=== PATIENT | female | born 1990 | race Caucasian/White ===

== ENCOUNTER 2017-05-05 09:52 | Observation (INO) | payer OTHER ==
[~2017-05-05] VITALS: Ht 160 cm; Wt 92.3 kg
[~2017-05-05 09:52] MED LIST: Amoxicillin500 MG PO; BIRTH CONTROL PO; Cheratussin AC118 ML PO; Flonase 0.05% N16 GM; HYDCOR2.5A PR; LISI20 PO; MULVITMINE PO; NITR100CA PO; Sudogest30 MG PO; TRAM50 PO; ZESTORETIC 20-121 EA PO; Zofran Odt4 MG SL
[2017-05-05] MEDS ORDERED: TOPI100 PO (10:24)
[2017-05-05] MEDS ORDERED: ESCI10 PO (10:25)
[2017-05-05 10:41] LABS: BASOPHILS ABSOLUTE AUTO 0.13 K/mm3 (0.00-0.23); BASOPHILS PERCENT AUTO 1 % (0-2); EOSINOPHILS ABSOLUTE AUTO 0.04 K/mm3 (0.00-0.68); EOSINOPHILS PERCENT AUTO 0 % (0-6); Hematocrit 49.1 % (33.0-51.0); Hemoglobin 16.6 g/dL (11.5-16.0); IMMATURE GRAN ABSOLUTE AUTO 0.16 K/mm3 (0.00-0.10); IMMATURE GRAN PERCENT AUTO 1 % (0-1); LYMPHOCYTES ABSOLUTE AUTO 1.43 K/mm3 (0.84-5.20); LYMPHOCYTES PERCENT AUTO 7 % (21-46); MONOCYTES ABSOLUTE AUTO 1.04 K/mm3 (0.16-1.47); MONOCYTES PERCENT AUTO 5 % (4-13); Mean Corpuscular HGB 30.6 pg (26.0-34.0); Mean Corpuscular HGB Conc 33.8 g/dL (31.5-36.5); Mean Corpuscular Volume 90 fL (80-100); Mean Platelet Volume 9.9 fL (9.1-12.4); NEUTROPHILS ABSOLUTE AUTO 17.55 K/mm3 (1.96-9.15); NEUTROPHILS PERCENT AUTO 86 % (41-73); Platelet Count 547 K/mm3 (150-400); RDW Standard Deviation 39.5 fL (35.1-46.3); Red Blood Cell Count 5.43 M/mm3 (3.80-5.20); White Blood Cell Count 20.35 K/mm3 (4.00-11.30)
[2017-05-05 11:02] LABS: Albumin, Blood 4.4 g/dL (3.4-5.0); Albumin/Globulin Ratio 0.9 (0.8-1.8); Bilirubin, Total 0.3 mg/dL (0.1-1.0); Bun/Creatinine Ratio 11.7 (12.0-20.0); Creatinine, Blood 1.96 mg/dL (0.40-1.00); Globulin, Blood 4.8 g/dL (2.2-4.0); Potassium, Blood 4.4 mmol/L (3.5-5.5); Total Protein, Blood 9.2 g/dL (6.4-8.2)
[2017-05-05 13:54] LABS: Influenza A Negative (NEGATIVE); Influenza B Negative (NEGATIVE)
[2017-05-05 14:32] LABS: Source, Urine Clean Catch
[2017-05-05 14:34] LABS: Blood, Urine 5+ (Neg); Glucose Qualitative, Urine 1+ (Neg); Ketones, Urine Neg (Neg); Leukocyte Esterase, Urine 1+ (Neg); Nitrite, Urine Neg (Neg); Protein, Urine 3+ (Neg); Specific Gravity, Urine 1.025 (1.003-1.022); Urobilinogen, Urine NORM (Normal)
[2017-05-05 14:43] LABS: Appearance, Urine Hazy (Clear); Color, Urine Yellow (P-Yellow)
[2017-05-05 14:45] LABS: Bacteria Mod /hpf; Red Blood Cells, Urine 0-2 /hpf (0-2); Squamous Epithelial Cells Mod /hpf (Few)
[2017-05-05] MEDS ORDERED: Tri-Sprintec1 EACH PO (23:47)
[2017-05-06 05:15] LABS: Anion Gap 11 mmol/L (6-16); Blood Urea Nitrogen 21 mg/dL (8-24); Bun/Creatinine Ratio 29.5 (12.0-20.0); CO2, Blood 22 mmol/L (21-32); Chloride, Blood 106 mmol/L (98-108); Creatinine, Blood 0.71 mg/dL (0.40-1.00); Glomerular Filtration Rate >60 (60-); Glucose, Blood 140 mg/dL (70-99); Potassium, Blood 3.5 mmol/L (3.5-5.5); Sodium, Blood 139 mmol/L (136-145)
[2017-05-06 05:26] LABS: Calcium, Blood 8.1 mg/dL (8.5-10.1)
[2017-05-06] MEDS ORDERED: PROM25 PO (09:49)
[2017-05-06] MEDS ORDERED: Omeprazole20 M1 PO (09:49)
== END 2017-05-06 11:56 | disposition home or self-care (01) ==
LOC: ER 09:52 → MEDS 09:53 → ENPENDDIS 05-06 09:29 → MEDS 05-06 11:56
PROVIDERS: Emergency Medicine; Internal Medicine
DX: N17.9 Acute kidney failure, unspecified (principal); I10 Essential (primary) hypertension; E86.0 Dehydration; K52.9 Noninfective gastroenteritis and colitis, unspecified; R65.10 Systemic inflammatory response syndrome (SIRS) of non-infectious origin without acute organ dysfunction; I95.9 Hypotension, unspecified; G43.909 Migraine, unspecified, not intractable, without status migrainosus; F32.9 Major depressive disorder, single episode, unspecified; Z79.899 Other long term (current) drug therapy
CPT/HCPCS: 36415; 74177; 80048; 80053; 81001; 81025; 83690; 85025; 87804; 96361; 96374; 96375; 99285; C9113; G0378; J2405; J7030; J7120; Q9967

== ENCOUNTER → 2018-12-29 | Outpatient (CLI) | payer OTHER ==
[~2018-12-29] MED LIST changes: +Aspir 8181 MG PO; +ESCI10 PO; +Humulin N100 UNIT/1 SQ; +Omeprazole20 M1 PO; +PRENATAL TABLE1 EAC2 PO; +PROM25 PO; +TOPI100 PO; +Tri-Sprintec1 EACH PO
[2019-01-01 00:06] LABS: CHLAMYDIA TRACHOMATIS, NAA Negative (Negative); NEISSERIA GONORRHOEAE, NAA Negative (Negative)
== END | disposition home or self-care (01) ==
LOC: LAB SHORT 15:05 → LAB 15:05
PROVIDERS: Obstetrics & Gynecology
DX: Z36.89 Encounter for other specified antenatal screening (principal); O09.91 Supervision of high risk pregnancy, unspecified, first trimester
CPT/HCPCS: 87491; 87591; G0123

== ENCOUNTER 2019-01-28 07:46 | Emergency (ER) | payer OTHER ==
[~2019-01-28] VITALS: Ht 154.9 cm; Wt 88.5 kg
[~2019-01-28 07:46] MED LIST changes: -Aspir 8181 MG PO; -Humulin N100 UNIT/1 SQ; -PRENATAL TABLE1 EAC2 PO
[2019-01-28] MEDS ORDERED: Humulin N100 UNIT/1 SQ (08:10)
[2019-01-28] MEDS ORDERED: Aspir 8181 MG PO (08:12)
[2019-01-28] MEDS ORDERED: PRENATAL TABLE1 EAC2 PO (08:12)
[2019-01-28 08:38] LABS: Source, Urine Clean Catch
[2019-01-28 08:43] LABS: Bilirubin, Urine Neg (Neg); Blood, Urine Neg (Neg); Glucose Qualitative, Urine Neg (Neg); Ketones, Urine 2+ (Neg); Leukocyte Esterase, Urine Neg (Neg); Nitrite, Urine Neg (Neg); Protein, Urine Neg (Neg); Urobilinogen, Urine NORM (Normal)
[2019-01-28 09:08] LABS: Appearance, Urine Clear (Clear); Color, Urine Yellow (P-Yellow)
[2019-01-28 11:24] LABS: Candida species (DNA Probe) Negative (NEGATIVE); G. vaginalis (DNA Probe) Negative (NEGATIVE); T. vaginalis (DNA Probe) Negative (NEGATIVE)
== END 2019-01-28 11:05 | disposition home or self-care (01) ==
LOC: ER 07:46
PROVIDERS: Physician Assistant
DX: O23.592 Infection of other part of genital tract in pregnancy, second trimester (principal); N89.8 Other specified noninflammatory disorders of vagina; Z79.899 Other long term (current) drug therapy; Z79.82 Long term (current) use of aspirin; Z3A.18 18 weeks gestation of pregnancy
CPT/HCPCS: 76815; 81003; 87480; 87510; 87660; 99284-25

== ENCOUNTER 2019-09-23 12:46 | Day surgery (SDC) | payer OTHER ==
[~2019-09-23] VITALS: Ht 160 cm; Wt 83.8 kg
[~2019-09-23 12:46] MED LIST changes: +Aspir 8181 MG PO; +Humulin N100 UNIT/1 SQ; +PRENATAL TABLE1 EAC2 PO
--- NOTE | 2019-09-23 14:28 | NUR ---
09/23/19 1428 [address] ABDOMEN PREPPED BY [email or web address].MARCIAL DARI AREA PREPPED BY [email or web address].ARA
== END 2019-09-23 15:47 | disposition home or self-care (01) ==
LOC: ORSCSDS 12:46
PROVIDERS: Obstetrics & Gynecology
PROC: 0UT74ZZ Resection of Bilateral Fallopian Tubes, Percutaneous Endoscopic Approach (ICD-10-PCS; principal; 2019-09-23 14:00)
DX: Z30.2 Encounter for sterilization (principal); E11.9 Type 2 diabetes mellitus without complications; E78.1 Pure hyperglyceridemia
CPT/HCPCS: 82947; 88302; J0171; J0330; J1100; J1885; J2250; J2405; J2704; J3010; J7120

== ENCOUNTER 2024-02-28 21:03 | Emergency (ER) | payer OTHER ==
[~2024-02-28] VITALS: Ht 157.5 cm; Wt 90.3 kg
[2024-02-28] MEDS ORDERED: Lactated Ringer's 1,000 ML IV ONE (21:15)
[2024-02-28] MEDS ORDERED: Ondansetron HCl 2 MG / ML 2ML Vial IV ONE (21:15)
[2024-02-28 21:19] LABS: BASOPHILS ABSOLUTE AUTO 0.12 K/mm3 (0.00-0.23); BASOPHILS PERCENT AUTO 1 % (0-2); EOSINOPHILS ABSOLUTE AUTO 0.19 K/mm3 (0.00-0.68); EOSINOPHILS PERCENT AUTO 1 % (0-6); Hematocrit 46.1 % (33.0-51.0); Hemoglobin 15.9 g/dL (11.5-16.0); Mean Corpuscular HGB 31.1 pg (26.0-34.0); Mean Corpuscular HGB Conc 34.5 g/dL (31.5-36.5); Mean Corpuscular Volume 90 fL (80-100); Mean Platelet Volume 9.7 fL (9.1-12.4); Platelet Count 379 K/mm3 (150-400); RDW Coefficient Variation 11.8 % (11.7-14.2); RDW Standard Deviation 38.7 fL (35.1-46.3); Red Blood Cell Count 5.12 M/mm3 (3.80-5.20); White Blood Cell Count 13.33 K/mm3 (4.00-11.30)
[2024-02-28 21:20] LABS: IMMATURE GRAN ABSOLUTE AUTO 0.07 K/mm3 (0.00-0.10); IMMATURE GRAN PERCENT AUTO 1 % (0-1); LYMPHOCYTES ABSOLUTE AUTO 7.13 K/mm3 (0.84-5.20); LYMPHOCYTES PERCENT AUTO 54 % (21-46); MONOCYTES PERCENT AUTO 6 % (4-13); NEUTROPHILS ABSOLUTE AUTO 5.02 K/mm3 (1.96-9.15); NEUTROPHILS PERCENT AUTO 38 % (41-73)
[2024-02-28 21:53] LABS: Albumin, Blood 3.9 g/dL (3.4-5.0); Bilirubin, Total 0.4 mg/dL (0.1-1.0); Bun/Creatinine Ratio 18.3 (12.0-20.0); Creatinine, Blood 0.44 mg/dL (0.40-1.00); Globulin, Blood 3.9 g/dL (2.2-4.0); Potassium, Blood 2.7 mmol/L (3.5-5.5); Total Protein, Blood 7.8 g/dL (6.4-8.2)
[2024-02-28 22:30] VITALS: BP 122/79
[2024-02-28] MEDS ORDERED: Potassium Chl 20MEQ/Water100ML 100 ML IV ONE (22:35)
[2024-02-28] MEDS ORDERED: Potassium Chloride 20 MEQ/15 ML UDC PO ONE (22:35)
[2024-02-28] MEDS ORDERED: POTA10T PO (23:08)
== END 2024-02-28 23:22 | disposition home or self-care (01) ==
LOC: ER 21:03
PROVIDERS: Student in an Organized Health Care Education/Training Program
DX: F12.929 Cannabis use, unspecified with intoxication, unspecified (principal); E87.6 Hypokalemia; I10 Essential (primary) hypertension; Z79.899 Other long term (current) drug therapy
CPT/HCPCS: 80053; 85025; 93005; 93010; 96361; 96374; 99284-25; A9270; J2405; J3480; J7120